=== PATIENT | female | born 1975 | race Two or more races ===

== ENCOUNTER → 2017-06-13 07:49 | Emergency (ER) | payer OTHER ==
[~2017-06-13 07:49] MED LIST: Ketorolac INJ* 60 MG/2 ML VIAL IM ONE
[2017-06-13 07:54] VITALS: BP 133/73
--- NOTE | 2017-06-13 18:59 | ED ---
Bean Rust Angela, scribed for Jamey Ivory MD on 06/13/17 at 0835 . Upper Extremity Pain - HPI Summary HPI Summary: This pt is a 41 y/o female presenting to [facility] c/o neck pain radiating to her right shoulder x2 days. Pt reports she woke up 2 days ago and felt her neck stiff upon waking up. Yesterday, she states her pain worsened. Today, pt presents with neck pain radiating to her right shoulder blade and with pain in her right arm. She currently rates her pain 8 out of 10 in severity. Her pain is aggravated with movement. - History of Current Complaint Chief Complaint: EDGeneral Stated Complaint: STIFF NECK Time Seen by Provider: 06/13/17 08:15 Hx Obtained From: Patient Hx Last Menstrual Period: has IUD Onset/Duration: Started Days Ago Timing: Lasting Days Aggravating Factor(s): Movement Alleviating Factor(s): Nothing Associated Signs & Symptoms: Positive: Neck Pain, Other - right shoulder blade - Allergies/Home Medications Allergies/Adverse Reactions: Allergies Allergy/AdvReac Type Severity Reaction Status Date / Time No Known Allergies Allergy Verified 08/01/16 11:58 PMH/Surg Hx/FS Hx/Imm Hx Endocrine/Hematology History: Denies: Hx Anticoagulant Therapy, Hx Diabetes, Hx Thyroid Disease Cardiovascular History: Reports: Hx Hypercholesterolemia Denies: Hx Hypertension, Hx Pacemaker/ICD Respiratory History: Reports: Hx Seasonal Allergies - allergic rhinitis, Hx Sleep Apnea - evaluation for 03/2014, Other Respiratory Problems/Disorders - ex- smoker quit 10/2013 Denies: Hx Asthma, Hx Chronic Obstructive Pulmonary Disease (COPD) GI History: Reports: Hx Gastroesophageal Reflux Disease Denies: Hx Ulcer History: Denies: Hx Renal Disease Musculoskeletal History: Reports: Hx Back Problems - lumbago, Other Musculoskeletal History - carpal tunnel, goiter Neurological History: Denies: Hx Dementia, Hx Seizures Psychiatric History: Denies: Hx Substance Abuse - Cancer History Hx Chemotherapy: No Hx Radiation Therapy: No - Surgical History Surgery Procedure, Year, and Place: carpal tunnel left Infectious Disease History: No Infectious Disease History: Denies: Hx Clostridium Difficile, Hx Hepatitis, Hx Human Immunodeficiency Virus (HIV), Hx of Known/Suspected MRSA, Hx Shingles, Hx Tuberculosis, Hx Known/ Suspected VRE, Hx Known/Suspected VRSA, History Other Infectious Disease, Traveled Outside the [place] in Last 30 Days - Family History Family History: No FHx of breast CA - Social History Alcohol Use: None Substance Use Type: Reports: None Hx Tobacco Use: Yes Smoking Status (MU): Light Every Day Tobacco Smoker Type: Cigarettes Amount Used/How Often: 1 ppd Length of Time of Smoking/Using Tobacco: 15 years Have You Smoked in the Last Year: Yes Review of Systems Negative: Fever, Chills Eyes: Negative ENT: Negative Cardiovascular: Negative Respiratory: Negative Gastrointestinal: Negative Genitourinary: Negative Positive: Other - neck pain, right shoulder blade Negative: Weakness, Paresthesia, Numbness All Other Systems Reviewed And Are Negative: Yes Physical Exam - Summary Physical Exam Summary: VITAL SIGNS: Reviewed. GENERAL: Patient is a well-developed and nourished female. Patient is not in any acute respiratory distress. HEAD AND FACE: No signs of trauma. No ecchymosis, hematomas or skull depressions. No sinus tenderness. EYES: PERRLA, EOMI x 2, No injected conjunctiva, no nystagmus. EARS: Hearing grossly intact. Ear canals and tympanic membranes are within normal limits. MOUTH: Oropharynx within normal limits. NECK: Supple, trachea is midline, no adenopathy, no JVD, no carotid bruit, no c- spine tenderness, neck with full ROM. CHEST: Symmetric, no tenderness at palpation LUNGS: Clear to auscultation bilaterally. No wheezing or crackles. CVS: Regular rate and rhythm, S1 and S2 present, no murmurs or gallops appreciated. ABDOMEN: Soft, non-tender. No signs of distention. No rebound no guarding, and no masses palpated. Bowel sounds are normal. EXTREMITIES: FROM in all major joints, no edema, no cyanosis or clubbing. There is trapezius and sternocleidomastoid muscle tenderness and spasm. NEURO: Alert and oriented x 3. No acute neurological deficits. Speech is normal and follows commands. SKIN: Dry and warm Triage Information Reviewed: Yes Vital Signs On Initial Exam: Initial Vitals Temp Pulse Resp BP Pulse Ox 96.8 F 84 16 133/73 97 06/13/17 07:51 06/13/17 07:51 06/13/17 07:51 06/13/17 07:51 06/13/17 07:51 Vital Signs Reviewed: Yes Diagnostics - Vital Signs Vital Signs Temp Pulse Resp BP Pulse Ox 06/13/17 07:51 96.8 F 84 16 133/73 97 - Laboratory Lab Statement: Any lab studies that have been ordered have been reviewed, and results considered in the medical decision making process. Course/Dx - Course Assessment/Plan: This pt is a 41 y/o female presenting to [facility] c/o neck pain radiating to her right shoulder x2 days. Pt reports she woke up 2 days ago and felt her neck stiff upon waking up. Yesterday, she states her pain worsened. Today, pt presents with neck pain radiating to her right shoulder blade and with pain in her right arm. She currently rates her pain 8 out of 10 in severity. Her pain is aggravated with movement. Pt will be given a toradol injection here in the ED. She will be given a prescription for anti- inflammatories and muscle relaxants to take at home. She is advised to follow up with her PCP and to return to the ED if symptoms worsen. - Diagnoses Differential Diagnosis/HQI/PQRI: Positive: Contusion, Strain, Sprain Provider Diagnoses: Torticollis Discharge - Discharge Plan Condition: Stable Disposition: HOME Prescriptions: Methocarbamol [Robaxin-750 MG TAB] 750 mg PO TID #12 tab Naproxen TAB* [Naprosyn 250 mg TAB*] 500 mg PO Q8H PRN #30 tab PRN Reason: Pain Patient Education Materials: Spasmodic Torticollis (ED) Referrals: Lois Mar MD [Primary Care Provider] - Additional Instructions: Please follow up with your primary care provider. Return to the Emergency Department if your symptoms worsen. The documentation as recorded by the Bean bailey Angela accurately reflects the service I personally performed and the decisions made by me, Jamey Ivory MD.
== END | disposition home or self-care (01) ==
LOC: ED 07:49
DX: M43.6 Torticollis (principal); M54.2 Cervicalgia; F17.210 Nicotine dependence, cigarettes, uncomplicated
CPT/HCPCS: 99281; J1885

== ENCOUNTER → 2017-06-15 03:46 | Emergency (ER) | payer OTHER ==
[~2017-06-15 03:46] MED LIST changes: +Diazepam TAB(*) 5 MG PO ONE; +HYDROmorphone INJ* 1 MG/ML CARPUJECT SYRINGE IM ONE; +Ketorolac INJ* 30 MG/ML 1 ML VIAL IM ONE; -Ketorolac INJ* 60 MG/2 ML VIAL IM ONE
[2017-06-15 07:06] VITALS: BP 127/77
--- NOTE | 2017-06-16 00:44 | ED ---
Bean Rust Angela, scribed for Verónica Ramirez MD on 06/15/17 at 0451 . Neck Pain - HPI Summary HPI Summary: This pt is a 41 y/o female presenting to [facility] c/o neck pain x4 days. Pt reports she was seen 2 days ago for the same symptoms and was diagnosed with torticollis. She was discharged with naproxen and robaxin. Pt states she has been using these medication and warm compresses with no relief. Pt is requesting a non-addicting medication as her parents were heroin addicts. She denies blurry vision, ear ache, chest pain, SOB, abd pain, hematuria, bloody stools. She is not currently being treated for depression or anxiety. She denies PMHx of DM or HTN. Pt is a current smoker but denies drug or alcohol use. - History of Current Complaint Chief Complaint: EDNeckComplaint Stated Complaint: NECK PAIN Time Seen by Provider: 06/15/17 03:56 Hx Obtained From: Patient Hx Last Menstrual Period: has IUD Onset/Duration Of Injury/Symptoms: Days Timing: Lasting Days Onset/Duration: Started days ago Severity Currently: Severe Pain Intensity: 10 Pain Scale Used: 0-10 Numeric Location: Discrete At: - neck Aggravating Factors: Nothing Alleviating Factors: Nothing Associated Signs & Symptoms: Negative: Swelling, Redness, Fever, Weakness, Paresthesia - Allergies/Home Medications Allergies/Adverse Reactions: Allergies Allergy/AdvReac Type Severity Reaction Status Date / Time No Known Allergies Allergy Verified 08/01/16 11:58 PMH/Surg Hx/FS Hx/Imm Hx Endocrine/Hematology History: Denies: Hx Anticoagulant Therapy, Hx Diabetes, Hx Thyroid Disease Cardiovascular History: Reports: Hx Hypercholesterolemia Denies: Hx Hypertension, Hx Pacemaker/ICD Respiratory History: Reports: Hx Seasonal Allergies - allergic rhinitis, Hx Sleep Apnea - evaluation for 03/2014, Other Respiratory Problems/Disorders - ex- smoker quit 10/2013 Denies: Hx Asthma, Hx Chronic Obstructive Pulmonary Disease (COPD) GI History: Reports: Hx Gastroesophageal Reflux Disease Denies: Hx Ulcer History: Denies: Hx Renal Disease Musculoskeletal History: Reports: Hx Back Problems - lumbago, Other Musculoskeletal History - carpal tunnel, goiter Neurological History: Denies: Hx Dementia, Hx Seizures Psychiatric History: Denies: Hx Substance Abuse - Cancer History Hx Chemotherapy: No Hx Radiation Therapy: No - Surgical History Surgery Procedure, Year, and Place: carpal tunnel left Infectious Disease History: No Infectious Disease History: Denies: Hx Clostridium Difficile, Hx Hepatitis, Hx Human Immunodeficiency Virus (HIV), Hx of Known/Suspected MRSA, Hx Shingles, Hx Tuberculosis, Hx Known/ Suspected VRE, Hx Known/Suspected VRSA, History Other Infectious Disease, Traveled Outside the [place] in Last 30 Days - Family History Known Family History: Positive: Other - both parents heroin addicts Family History: No FHx of breast CA - Social History Alcohol Use: None Substance Use Type: Reports: None Hx Tobacco Use: Yes Smoking Status (MU): Light Every Day Tobacco Smoker Type: Cigarettes Amount Used/How Often: 1 ppd Length of Time of Smoking/Using Tobacco: 15 years Have You Smoked in the Last Year: Yes Review of Systems Negative: Fever, Chills Negative: Blurred Vision Negative: Ear Ache Negative: Chest Pain Negative: Shortness Of Breath Negative: Abdominal Pain Negative: hematuria, other - bloody stools Positive: Other - neck pain Negative: Weakness All Other Systems Reviewed And Are Negative: Yes Physical Exam Triage Information Reviewed: Yes Vital Signs On Initial Exam: Initial Vitals Temp Pulse Resp BP Pulse Ox 97.6 F 86 18 147/86 98 06/15/17 03:49 06/15/17 03:49 06/15/17 03:49 06/15/17 03:49 06/15/17 03:49 Vital Signs Reviewed: Yes Appearance: Positive: Well-Nourished Skin: Positive: Warm, Skin Color Reflects Adequate Perfusion, Dry Head/Face: Positive: Normal Head/Face Inspection Eyes: Positive: Normal ENT: Positive: Normal ENT inspection Neck: Positive: Supple, Other: - Pt has restricted ROM of neck. She appears uncomfortable. Respiratory/Lung Sounds: Positive: Clear to Auscultation, Breath Sounds Present Cardiovascular: Positive: Normal, RRR Musculoskeletal: Positive: Normal Neurological: Positive: Normal, Sensory/Motor Intact, Alert, Oriented to Person Place, Time Psychiatric: Positive: Normal - Mateo Coma Scale Coma Scale Total: 15 Diagnostics - Vital Signs Vital Signs Temp Pulse Resp BP Pulse Ox 06/15/17 03:49 97.6 F 86 18 147/86 98 - Laboratory Lab Statement: Any lab studies that have been ordered have been reviewed, and results considered in the medical decision making process. Re-Evaluation - Re-Evaluation First Eval Re-Evaluation Time: 06:37 Comment: Pt's pain has improved. Neck Course/Dx - Course Assessment/Plan: Pt is a 41 y/o female presenting with neck pain x4 days. In the ED course, pt was given Dilaudid, Toradol, and valium. On re-evaluation pt is feeling much better. Pt will be discharged with Flexeril. She is advised to follow up with her PCP. - Diagnoses Provider Diagnoses: Muscle spasm Discharge - Discharge Plan Condition: Stable Disposition: HOME Prescriptions: Cyclobenzaprine HCl [Flexeril 5 mg (NF)] 10 mg PO TID #20 tab Patient Education Materials: Muscle Spasm (ED) Referrals: Lois Mar MD [Primary Care Provider] - Additional Instructions: follow up with your doctor. return if worse or any new symptoms. It is important to take all medications as previously instructed. The documentation as recorded by the Bean bailey Angela accurately reflects the service I personally performed and the decisions made by , Verónica Ramirez MD.
== END | disposition home or self-care (01) ==
LOC: ED 03:46
DX: M62.838 Other muscle spasm (principal); Z86.79 Personal history of other diseases of the circulatory system; F17.210 Nicotine dependence, cigarettes, uncomplicated
CPT/HCPCS: 96372; 99282; A9270-GY; J1170; J1885

== ENCOUNTER 2017-06-22 09:06 | Emergency (ER) | payer OTHER ==
[2017-06-22] MEDS ORDERED: oxyCODONE/Acetamin 5/325 MG* TAB PO ONE (12:44)
[2017-06-22] MEDS ORDERED: LORazepam TAB(*) 1 MG PO ONE (12:44)
--- NOTE | 2017-06-22 13:57 | RAD ---
Indication: Neck and RIGHT shoulder and arm pain and numbness. Comparison: No relevant prior exams available on the [facility] for [place]. Technique: epacubea 1.5 Jerica [id number] with GEM suite. Noncontrast MRI cervical spine. Report: The cervical spinal cord is normal in patterns of signal intensity. No conspicuous spinal cord lesions or syringohydromyelia. Bone marrow signal is normal throughout. Negative for fracture or spondylolysis at any level. Only mild kyphosis from C2 through C6 without facet subluxation at any level. C2-C3: Unremarkable for age. C3-C4: Unremarkable for age. C4-C5: Small RIGHT paracentral to subarticular disc extrusion with caudal extension to the pedicular level results in mild impression on the LEFT anterior margin of the thecal sac and probable mild impingement on the RIGHT C5 nerve roots. C5-C6: Moderate RIGHT paracentral to RIGHT foraminal disc extrusion with caudal extension to the pedicular level with resulting mild impression on the RIGHT anterior margin of the thecal sac and impingement on the C6 nerve roots. C6-C7: Unremarkable for age. C7-T1: Unremarkable for age. IMPRESSION: 1. At C4-C5 there is a small RIGHT paracentral to subarticular disc extrusion with caudal extension to the pedicular level results in mild impression on the LEFT anterior margin of the thecal sac and probable mild impingement on the RIGHT C5 nerve roots. 2. At C5-C6 there is a moderate RIGHT paracentral to RIGHT foraminal disc extrusion with caudal extension to the pedicular level with resulting mild impression on the RIGHT anterior margin of the thecal sac and impingement on the C6 nerve roots.
--- NOTE | 2017-06-22 15:30 | ED ---
Tomi Rust Alfonso, scribed for Kaylynn Chu MD on 06/22/17 at 1127 . Upper Extremity Pain - HPI Summary HPI Summary: This patient is a 41 year old F presenting to [facility] with a chief complaint of right shoulder pain gradually worsening since a few days ago. She states it felt like a pinched nerve or a slipped disk. The patient rates the pain 9/10 in severity. Symptoms fully alleviated by nothing. She reports mild relief from Valium, Dilaudid, Toradol and Naproxen. Patient reports right finger numbness and constipation. She reports being out of work for two weeks. She is tearfully requesting an MRI. She presented to [facility] 7 and 9 days ago for this complaint. The EMR shows a scheduled appointment with Dr. Khalil (curb hop) in 10 days. Tobacco abuse disorder. - History of Current Complaint Chief Complaint: EDShoulderClavicleInj Stated Complaint: RT SHOULDER-ARM PAIN Time Seen by Provider: 06/22/17 11:23 Hx Obtained From: Patient Hx Last Menstrual Period: has IUD Onset/Duration: Started Days Ago, Still Present Timing: Constant Severity Currently: Severe Pain Location: Shoulder - R Alleviating Factor(s): Nothing Associated Signs & Symptoms: Positive: Other - right finger numbness and constipation - Allergies/Home Medications Allergies/Adverse Reactions: Allergies Allergy/AdvReac Type Severity Reaction Status Date / Time No Known Allergies Allergy Verified 08/01/16 11:58 PMH/Surg Hx/FS Hx/Imm Hx Endocrine/Hematology History: Denies: Hx Anticoagulant Therapy, Hx Diabetes, Hx Thyroid Disease Cardiovascular History: Reports: Hx Hypercholesterolemia Denies: Hx Hypertension, Hx Pacemaker/ICD Respiratory History: Reports: Hx Seasonal Allergies - allergic rhinitis, Hx Sleep Apnea - evaluation for 03/2014, Other Respiratory Problems/Disorders - ex- smoker quit 10/2013 Denies: Hx Asthma, Hx Chronic Obstructive Pulmonary Disease (COPD) GI History: Reports: Hx Gastroesophageal Reflux Disease Denies: Hx Ulcer History: Denies: Hx Renal Disease Musculoskeletal History: Reports: Hx Back Problems - lumbago, Other Musculoskeletal History - carpal tunnel, goiter Neurological History: Denies: Hx Dementia, Hx Seizures Psychiatric History: Denies: Hx Substance Abuse - Cancer History Hx Chemotherapy: No Hx Radiation Therapy: No - Surgical History Surgery Procedure, Year, and Place: carpal tunnel left Infectious Disease History: No Infectious Disease History: Denies: Hx Clostridium Difficile, Hx Hepatitis, Hx Human Immunodeficiency Virus (HIV), Hx of Known/Suspected MRSA, Hx Shingles, Hx Tuberculosis, Hx Known/ Suspected VRE, Hx Known/Suspected VRSA, History Other Infectious Disease, Traveled Outside the [place] in Last 30 Days - Family History Known Family History: Positive: Diabetes, Other - both parents heroin addicts Family History: No FHx of breast CA - Social History Lives: With Family Alcohol Use: None Substance Use Type: Reports: None Hx Tobacco Use: Yes Smoking Status (MU): Light Every Day Tobacco Smoker Type: Cigarettes Amount Used/How Often: 1 ppd Length of Time of Smoking/Using Tobacco: 15 years Have You Smoked in the Last Year: Yes Review of Systems Positive: Other - Constipation Positive: Other - right shoulder pain Neurological: Other - right finger numbness All Other Systems Reviewed And Are Negative: Yes Physical Exam - Summary Physical Exam Summary: General: Well appearing, Moderate pain distress Skin: Warm, Skin Color Reflects Adequate Perfusion, Dry Eyes: EOMI, DANIKA ENT: Pharynx normal, TMs normal Neck: Supple, nontender Respiratory: CTA, breath sounds present, no rhonchi, no wheezes, no rales Cardiovascular: RRR, no murmur, no rub, no gallop Abdomen: Soft, nontender, Non-distended, no guarding, no rebound Bowel: Present Musculoskeletal: RIC, No edema, 5/5 bicep and tricep strength. Neuro: Dorsum of 4th and 5th fingers decreased sensations, A&Ox3, CN intact 2-12 Psych: Affect/mood appropriate Triage Information Reviewed: Yes Vital Signs On Initial Exam: Initial Vitals Temp Pulse Resp BP Pulse Ox 96.7 F 95 20 130/85 94 06/22/17 09:20 06/22/17 09:20 06/22/17 09:20 06/22/17 09:20 06/22/17 09:20 Vital Signs Reviewed: Yes Diagnostics - Vital Signs Vital Signs Temp Pulse Resp BP Pulse Ox 06/22/17 09:20 96.7 F 95 20 130/85 94 - Laboratory Lab Statement: Any lab studies that have been ordered have been reviewed, and results considered in the medical decision making process. - Additional Comments Diagnostic Additional Comments: MRI Cervical Spine reveals, per radiologist, 1. At C4-C5 there is a small RIGHT paracentral to subarticular disc extrusion with caudal extension to the pedicular level results in mild impression on the LEFT anterior margin of the thecal sac and probable mild impingement on the RIGHT C5 nerve roots. 2. At C5- C6 there is a moderate RIGHT paracentral to RIGHT foraminal disc extrusion with caudal extension to the pedicular level with resulting mild impression on the RIGHT anterior margin of the thecal sac and impingement on the C6 nerve roots. ED physician has reviewed this radiology report and agrees. Re-Evaluation - Re-Evaluation First Eval Re-Evaluation Time: 11:59 Change: Improved Comment: She is much calmer. She agrees with the plan. Second Eval Re-Evaluation Time: 15:13 Comment: Long discussion about prescriptions and outpatient follow up. She understands and agrees. Course/Dx - Course Assessment/Plan: 41 yo female who has had right neck and arm pain with parasthesias to her fingers for 1-2 weeks who is very frustrated about the pain she received an mri showing c4,c5,c6 nerve root impingement. Normal neuro exam. Spent a very long time with pt increasing pain meds, which pt is acutely afraid of because her parents suffered with heroin abuse. I explained at this point that the meds are needed and that it was ok that the 1tab of vicodin wasn't lasting more than 2 hours so these meds were increased. she is going to call her md to see if she can get a pain med referral. - Diagnoses Provider Diagnoses: Cervical radiculopathy at C5 - Physician Notifications Discussed Care of Patient With: Heraclio Bass Time Discussed With Above Provider: 11:53 Instructed by Provider To: Other - Consulted Dr. Bass (radiologist) regarding imaging options at 1153. Discharge - Discharge Plan Condition: Stable Disposition: HOME Prescriptions: Diclofenac Sodium [Diclofenac Sodium Xr] 100 mg PO BID #30 tab LORazepam TAB(*) [Ativan 1 MG TAB (*)] 1 mg PO Q4H PRN #18 tab MDD 6 PRN Reason: Pain oxyCODONE/Acetamin 5/325 MG* [Percocet 5/325 TAB*] 2 tab PO Q4H PRN #36 tab MDD 12 PRN Reason: Pain Referrals: Lois Mar MD [Primary Care Provider] - Additional Instructions: RETURN TO THE EMERGENCY DEPARTMENT FOR CHANGING OR WORSENING SYMPTOMS. The documentation as recorded by the Tomi bailey Alfonso accurately reflects the service I personally performed and the decisions made by me, Kaylynn Chu MD.
[2017-06-22 15:35] VITALS: BP 133/81
== END 2017-06-22 15:34 | disposition home or self-care (01) ==
LOC: ED 09:06
DX: M54.12 Radiculopathy, cervical region (principal); M25.511 Pain in right shoulder; K59.00 Constipation, unspecified; F17.210 Nicotine dependence, cigarettes, uncomplicated
CPT/HCPCS: 72141; 99282; A9270-GY

== ENCOUNTER 2018-01-14 23:31 | Emergency (ER) | payer SELFPAY ==
[2018-01-15] MEDS ORDERED: Meclizine TAB* 12.5 MG PO ONE (00:10)
[2018-01-15] MEDS ORDERED: Ondansetron TAB* 4 MG PO ONE (00:10)
[2018-01-15 02:44] VITALS: BP 125/72
--- NOTE | 2018-01-18 21:25 | ED ---
Brigido Rust Stephanie, scribed for Von Giraldo MD on 01/15/18 at 0013 . Dizziness - HPI Summary HPI Summary: The pt is a 42 y/o F presenting to the ED with c/o dizziness since 22:30 today. The pt states she awoke at 22:30 and jumped out of bed and felt dizzy. Symptoms include lightheadedness and nausea. Aggravating factors include unsteady gait and movement of the head and body. The pt reports hx of vertigo. - History Of Current Complaint Chief Complaint: EDDizziness Stated Complaint: DIZZY/NAUSEA Time Seen by Provider: 01/15/18 00:01 Hx Obtained From: Patient Onset/Duration: Still Present Timing: Intermittent Episode Lasting Severity Currently: Moderate Character: Lightheaded, Dizzy Aggravating Factor(s): Position Change, Change In Head Position Alleviating Factor(s): Nothing Associated Signs And Symptoms: Positive: Nausea - Allergies/Home Medications Allergies/Adverse Reactions: Allergies Allergy/AdvReac Type Severity Reaction Status Date / Time No Known Allergies Allergy Verified 08/01/16 11:58 PMH/Surg Hx/FS Hx/Imm Hx Endocrine/Hematology History: Denies: Hx Anticoagulant Therapy, Hx Diabetes, Hx Thyroid Disease Cardiovascular History: Reports: Hx Hypercholesterolemia Denies: Hx Hypertension, Hx Pacemaker/ICD Respiratory History: Reports: Hx Seasonal Allergies - allergic rhinitis, Hx Sleep Apnea - evaluation for 03/2014, Other Respiratory Problems/Disorders - ex- smoker quit 10/2013 Denies: Hx Asthma, Hx Chronic Obstructive Pulmonary Disease (COPD) GI History: Reports: Hx Gastroesophageal Reflux Disease Denies: Hx Ulcer History: Denies: Hx Renal Disease Musculoskeletal History: Reports: Hx Back Problems - lumbago, Other Musculoskeletal History - carpal tunnel, goiter Sensory History: Denies: Hx Legally Blind EENT History: Denies: Hx Deafness Neurological History: Denies: Hx Dementia, Hx Seizures Psychiatric History: Denies: Hx Substance Abuse - Cancer History Hx Chemotherapy: No Hx Radiation Therapy: No - Surgical History Surgery Procedure, Year, and Place: carpal tunnel left Infectious Disease History: No Infectious Disease History: Denies: Hx Clostridium Difficile, Hx Hepatitis, Hx Human Immunodeficiency Virus (HIV), Hx of Known/Suspected MRSA, Hx Shingles, Hx Tuberculosis, Hx Known/ Suspected VRE, Hx Known/Suspected VRSA, History Other Infectious Disease, Traveled Outside the [place] in Last 30 Days - Family History Known Family History: Positive: Diabetes, Other - both parents heroin addicts Family History: No FHx of breast CA - Social History Occupation: Employed Full-time Lives: With Family Alcohol Use: None Hx Substance Use: No Substance Use Type: Reports: None Hx Tobacco Use: Yes Smoking Status (MU): Light Every Day Tobacco Smoker Type: Cigarettes Amount Used/How Often: 1 ppd Length of Time of Smoking/Using Tobacco: 15 years Have You Smoked in the Last Year: Yes Review of Systems Negative: Fever Positive: Nausea Neurological: Other - dizziness, lightheadedness Negative: Slurred Speech All Other Systems Reviewed And Are Negative: Yes Physical Exam - Summary Physical Exam Summary: Appearance: Well-appearing, Well-nourished, lying in bed comfortably Skin: Warm, dry, no obvious rash Eyes: sclera anicteric, no conjunctiva pallor ENT: mucous membranes moist, pharynx appears normal Neck: Supple, nontender Respiratory: Clear to auscultation, no signs of respiratory distress Cardiovascular: Normal S1, S2. No murmurs. Normal distal pulses in tibial and radial bilaterally. Abdomen: Soft, nontender, normal active bowel sounds present Musculoskeletal: Normal, Strength/ROM Intact Neurological: A&Ox3, awake and alert, mentation is normal, speech is fluent and appropriate, nystagmus to the R, no fine motor ataxia, no motor ataxia Psychiatric: affect is normal, does not appear anxious or depressed Triage Information Reviewed: Yes Vital Signs On Initial Exam: Initial Vitals Temp Pulse Resp BP Pulse Ox 97.2 F 74 20 138/95 100 01/14/18 23:38 01/14/18 23:38 01/14/18 23:38 01/14/18 23:38 01/14/18 23:38 Vital Signs Reviewed: Yes Diagnostics - Vital Signs Vital Signs Temp Pulse Resp BP Pulse Ox 01/14/18 23:38 97.2 F 74 20 138/95 100 - Laboratory Lab Statement: Any lab studies that have been ordered have been reviewed, and results considered in the medical decision making process. - EKG 23:36 Cardiac Rate: NL EKG Rhythm: Sinus Rhythm - NSR 72 at BPM, P waves, QRS complex, and T waves are within normal limits, T waves and intervals are normal, no ischemic changes. This is a normal EKG. Re-Evaluation - Re-Evaluation First Eval Re-Evaluation Time: 00:13 Change: Unchanged - ED physician discussed plan of discharge with the pt and the pt understands and agrees. Dizzy Course/Dx - Diagnoses Provider Diagnoses: Peripheral vertigo Discharge - Sign-Out/Discharge Documenting (check all that apply): Discharge/Admit/Transfer - Discharge Plan Condition: Good Disposition: HOME Prescriptions: Meclizine TAB* [Antivert 12.5 TAB*] 25 mg PO TID PRN #30 tab PRN Reason: Dizziness Patient Education Materials: Benign Paroxysmal Positional Vertigo (ED) Referrals: Lois Mar MD [Medical Doctor] - Additional Instructions: You can check on youtube for something called the Cedrick maneuver. Many people find this helpful in managing their vertigo, and there are no major side effects of it. - Billing Disposition and Condition Condition: GOOD Disposition: HOME The documentation as recorded by the Brigido bailey Stephanie accurately reflects the service I personally performed and the decisions made by me, Von Giraldo MD.
== END 2018-01-15 02:46 | disposition home or self-care (01) ==
LOC: ED 23:31
DX: H81.399 Other peripheral vertigo, unspecified ear (principal); R11.0 Nausea; E78.00 Pure hypercholesterolemia, unspecified; K21.9 Gastro-esophageal reflux disease without esophagitis; F17.210 Nicotine dependence, cigarettes, uncomplicated
CPT/HCPCS: 93005; 99282; A9270-GY

== ENCOUNTER 2019-05-15 17:30 | Emergency (ER) | payer MEDICAID, OTHER ==
--- NOTE | 2019-05-15 19:50 | ED ---
Respiratory - HPI Summary HPI Summary: 43 yo female presents to [facility] with cold symptoms. She tells me that she has had an intermittently productive cough for 3-4 days. Yesterday developed wheezing, sinus pain/pressure/congestion, and right ear pain. She has not taken anything OTC for her symptoms. She denies fever, chills, sore throat, SOB, chest pain. - History of Current Complaint Chief Complaint: EDUpperRespComplaint Stated Complaint: DIFFICULTY BREATHING PER PT Time Seen by Provider: 05/15/19 19:49 Hx Obtained From: Patient Onset/Duration: Gradual Onset Initial Severity: Mild Current Severity: Moderate Pain Intensity: 5 - Allergy/Home Medications Allergies/Adverse Reactions: Allergies Allergy/AdvReac Type Severity Reaction Status Date / Time No Known Allergies Allergy Verified 05/15/19 20:07 PMH/Surg Hx/FS Hx/Imm Hx Endocrine/Hematology History: Denies: Hx Anticoagulant Therapy, Hx Diabetes, Hx Thyroid Disease Cardiovascular History: Reports: Hx Hypercholesterolemia Denies: Hx Hypertension, Hx Pacemaker/ICD Respiratory History: Reports: Hx Seasonal Allergies - allergic rhinitis, Hx Sleep Apnea - evaluation for 03/2014, Other Respiratory Problems/Disorders - ex- smoker quit 10/2013 Denies: Hx Asthma, Hx Chronic Obstructive Pulmonary Disease (COPD) GI History: Reports: Hx Gastroesophageal Reflux Disease Denies: Hx Ulcer History: Denies: Hx Renal Disease Musculoskeletal History: Reports: Hx Back Problems - lumbago, Other Musculoskeletal History - carpal tunnel, goiter Sensory History: Denies: Hx Legally Blind, Hx Deafness Opthamlomology History: Denies: Hx Legally Blind Neurological History: Denies: Hx Dementia, Hx Seizures Psychiatric History: Denies: Hx Substance Abuse - Cancer History Hx Chemotherapy: No Hx Radiation Therapy: No - Surgical History Surgery Procedure, Year, and Place: carpal tunnel left Infectious Disease History: No Infectious Disease History: Denies: Hx Clostridium Difficile, Hx Hepatitis, Hx Human Immunodeficiency Virus (HIV), Hx of Known/Suspected MRSA, Hx Shingles, Hx Tuberculosis, Hx Known/ Suspected VRE, Hx Known/Suspected VRSA, History Other Infectious Disease, Traveled Outside the [place] in Last 30 Days - Family History Known Family History: Positive: Diabetes, Other - both parents heroin addicts Family History: No FHx of breast CA - Social History Alcohol Use: None Hx Substance Use: No Substance Use Type: Reports: None Hx Tobacco Use: Yes Smoking Status (MU): Light Every Day Tobacco Smoker Type: Cigarettes Amount Used/How Often: 1 ppd Length of Time of Smoking/Using Tobacco: 15 years Have You Smoked in the Last Year: Yes Review of Systems Constitutional: Negative Eyes: Negative Positive: Ear Ache, Nasal Discharge Cardiovascular: Negative Positive: Cough Gastrointestinal: Negative Genitourinary: Negative Skin: Negative Neurological: Negative Psychological: Normal All Other Systems Reviewed And Are Negative: No Physical Exam - Summary Physical Exam Summary: GENERAL: NAD. WDWN. No pain distress. SKIN: No rashes, sores, lesions, or open wounds. HEENT: Head: AT/NC Eyes: Conjunctiva clear without inflammation or discharge. Ears: Hearing grossly normal. RIGHT TM with mild erythema and bulging. No canal edema or drainage. Nose: Nasal mucosa pink and moist. TTP maxillary and frontal sinus. Throat: Posterior oropharynx without exudates, erythema, or tonsillar enlargement. Uvula midline. NECK: Supple. Nontender. No lymphadenopathy. CHEST: Mild wheezing throughout. No r/r. No accessory muscle use. Breathing comfortably and in no distress. CV: RRR. Without m/r/g. Pulses intact. Cap refill <2seconds NEURO: Alert. PSYCH: Age appropriate behavior. Triage Information Reviewed: Yes Vital Signs On Initial Exam: Initial Vitals Temp Pulse Resp BP Pulse Ox 100.0 F 94 20 120/80 98 05/15/19 17:33 05/15/19 17:33 05/15/19 17:33 05/15/19 17:33 05/15/19 17:33 Vital Signs Reviewed: Yes Diagnostics - Vital Signs Vital Signs Temp Pulse Resp BP Pulse Ox 05/15/19 17:33 100.0 F 94 20 120/80 98 - Laboratory Lab Statement: Any lab studies that have been ordered have been reviewed, and results considered in the medical decision making process. - Radiology CXR Radiology Interpretation Completed By: ED Physician Summary of Radiographic Findings: No PNA Disposition - Course Course Of Treatment: In the ED pt was given duoneb with good improvement of her cough and wheezing. Suspect bronchitis and otitis media. Will rx for augmentin , albuterol inhaler, and prednisone. Advised to take OTC mucinex and tylenol/ ibuprofen for discomfort and f/u if symptoms do not improve. - Diagnoses Provider Diagnoses: Bronchitis, Otitis media Discharge ED - Sign-Out/Discharge Documenting (check all that apply): Patient Departure Patient Received Moderate/Deep Sedation with Procedure: No - Discharge Plan Condition: Stable Disposition: HOME Prescriptions: Albuterol 2.5MG/3ML (0.083%)* [Ventolin 2.5 MG/3 ML NEB.RAISSA*] 2.5 mg INH Q6H PRN #14 [email or web address] PRN Reason: Sob/Wheezing Amoxicillin/Clavulanate TAB* [Augmentin TAB 875*] 875 mg PO BID #14 tab predniSONE TAB* [Deltasone 20 MG TAB*] 40 mg PO DAILY #10 tab Patient Education Materials: Ear Infection (ED), Acute Bronchitis (ED) Forms: *Work Release Referrals: Lois Mar MD [Primary Care Provider] - Additional Instructions: If you develop a fever, shortness of breath, chest pain, new or worsening symptoms - please call your PCP or go to the ED immediately. Take the medications as prescribed. May take tylenol/ibuprofen as directed for discomfort or fever - Billing Disposition and Condition Condition: STABLE Disposition: Home
[2019-05-15] MEDS ORDERED: Albuterol/Ipratropium NEB.SOL* Albuterol 2.5 MG/Ipratropium 0.5 MG 3 ML INH ONE ×2 (19:54→20:50)
[2019-05-15] MEDS ORDERED: Amoxicillin/Clavulanate TAB* 875 MG PO ONE (20:50)
[2019-05-15] MEDS ORDERED: Ibuprofen TAB* 600 MG PO ONE (20:50)
[2019-05-15] MEDS ORDERED: Albuterol HFA INHALER* 8 gm MDI INH ONE (20:50)
[2019-05-15 21:27] VITALS: BP 140/94
== END 2019-05-15 21:26 | disposition home or self-care (01) ==
LOC: ED 17:30
DX: J40 Bronchitis, not specified as acute or chronic (principal); H66.91 Otitis media, unspecified, right ear; E78.00 Pure hypercholesterolemia, unspecified; K21.9 Gastro-esophageal reflux disease without esophagitis; F17.210 Nicotine dependence, cigarettes, uncomplicated; Z79.899 Other long term (current) drug therapy
CPT/HCPCS: 71046; 99282; A9270-GY